=== PATIENT | female | born 1990 | race Caucasian/White ===

== ENCOUNTER 2021-01-20 08:46 | Emergency (ER) | payer OTHER ==
[~2021-01-20] VITALS: Ht 180.3 cm; Wt 70.4 kg
[~2021-01-20 08:46] MED LIST: BENADRYL 50MG C50 MG OR; CIPRO500 MG OR; DEPO-PROVER150 MG/ML IM; MEDDOSEPAK OR; NAPROSYN500 MG OR; NO MEDS; ZOFRAN ODT4 MG PO
[2021-01-20 09:31] LABS: URINE BILIRUBIN - DIPSTICK NEGATIVE (NEGATIVE); URINE BLOOD DIPSTICK MODERATE (NEGATIVE); URINE COLOR YELLOW; URINE GLUCOSE - DIPSTICK NEGATIVE (NEGATIVE); URINE KETONE 15 mg/dL (NEGATIVE); URINE LEUK ESTERASE NEGATIVE (NEGATIVE); URINE PH 7.5 (4.5-8.0); URINE PROTEIN - DIPSTICK TRACE mg/dL (NEG-TRACE); URINE UROBILINOGEN - DIPSTICK 0.2 E.U./dL (0.2)
[2021-01-20 09:32] LABS: URINE NITRITE - DIPSTICK NEGATIVE (Negative)
[2021-01-20 09:47] LABS: URINE BACTERIA FEW hpf; URINE SQUAMOUS EPITHELIAL CELL MODERATE EPI/hpf (0-FEW)
[2021-01-20 09:48] LABS: URINE MUCUS FEW hpf (NONE-FEW)
[2021-01-20 10:00] LABS: HEMATOCRIT 46.1 % (37.0-47.0); HEMOGLOBIN 15.3 g/dl (12.0-16.0); IMMATURE GRANULOCYTES 0.2 % (0.0-5.0); MEAN CELL VOLUME 88.7 fL CALC (80.0-100.0); MEAN CORPUSCULAR HGB 29.4 pG CALC (26.0-32.0); MEAN CORPUSCULAR HGB CONC 33.2 g/dL CAL (32.0-36.0); NEUT# 4.12 thou/uL (2.00-7.15); RED BLOOD COUNT 5.2 mill/uL (4.20-5.60)
[2021-01-20 10:05] LABS: ALBUMIN 4.9 g/dL (3.2-5.0); ALKALINE PHOSPHATASE 55 u/l (38-126); ANION GAP 14 (6-22 (CALC)); BUN 8 mg/dL (7-17); BUN/CREATININE RATIO 11 (12-20 (CALC)); CARBON DIOXIDE 26 mmol/l (22-30); CHLORIDE 101 mmol/l (95-108); CREATININE 0.7 mg/dL (0.5-1.0); GFR > 60 ML/MIN (>=60 (CALC)); GFR FOR AFR.AMER. > 60 ML/MIN (>=60 (CALC)); LIPASE 39 u/l (23-300); SGOT/AST 24 u/l (14-36); SODIUM 136 mmol/l (137-146); TOTAL PROTEIN 8.8 g/dL (6.3-8.2)
[2021-01-20 10:12] LABS: BILIRUBIN, TOTAL 0.2 mg/dL (0.0-1.4)
[2021-01-20 10:47] VITALS: BP 122/72
[2021-01-20] MEDS ORDERED: OMNI-PAC300 MG PO (11:20)
== END 2021-01-20 11:24 | disposition home or self-care (01) | DRG 690 ==
LOC: ED 08:46
PROVIDERS: Family Medicine
DX: N39.0 Urinary tract infection, site not specified (principal); B96.20 Unspecified Escherichia coli [E. coli] as the cause of diseases classified elsewhere

== ENCOUNTER 2022-12-27 15:45 | Emergency (ER) | payer OTHER ==
[~2022-12-27] VITALS: Ht 180.3 cm; Wt 68.0 kg
[~2022-12-27 15:45] MED LIST changes: +OMNI-PAC300 MG PO
[2022-12-27 15:57] VITALS: BP 112/80
[2022-12-27 16:00] VITALS: BP 120/77
[2022-12-27 16:20] VITALS: BP 124/74
[2022-12-27 16:40] VITALS: BP 116/85
[2022-12-27 17:00] VITALS: BP 104/77
[2022-12-27 17:09] VITALS: BP 104/77
== END 2022-12-27 17:15 | disposition home or self-care (01) ==
LOC: ED 15:45
DX: S93.601A Unspecified sprain of right foot, initial encounter (principal); F17.200 Nicotine dependence, unspecified, uncomplicated; X50.0XXA Overexertion from strenuous movement or load, initial encounter; Y93.89 Activity, other specified